=== PATIENT | female | born 1965 | race Caucasian/White ===

== ENCOUNTER 2018-12-16 06:59 | Day surgery (SDC) | payer OTHER, SELFPAY ==
--- NOTE | 2018-12-16 | PATH_ITS ---
[facility] Accession Number: [id number] . 01 Material submitted: . CECAL POLYP . 02 Diagnosis: Cecum, Polyp, Biopsy: Tubular adenoma. MRV/12/17/2018 . 02 Electronically signed: . Ирина Weiner MD, Pathologist NPI- [id number] . 01 Gross description: . Received one formalin-filled container labeled with the patient's name and labeled cecal polyp are four 0.2 to 0.5 cm portions of tissue. Entirely submitted in one cassette. ([facility]:[id number]) /[facility] . 02 Pathologist provided ICD-10: D12.0 . 02 CPT . 781879 Performed at: 01 [facility] [place] [address] [id number] MD Gulshan Gross MD Phone: [phone] Performed at: 02 [facility] [place] [address] [place], [place] [id number] MD Ирина Weiner MD Phone: [phone]
[2018-12-16] MEDS: SODIUM CHLORIDE 0.9% 1,000 ML 100 ML IV (07:11)
[2018-12-16 07:24] VITALS: BP 124/85; PULSE 80; RESP 15; TEMP 36.8; O2SAT 100; BMI 27.6
[2018-12-16] MEDS: MIDAZOLAM 5 MG/5 ML VIAL IV (08:43)
[2018-12-16] MEDS: fentaNYL 250 MCG/5 ML INJ IV (08:44)
--- NOTE | 2018-12-16 08:54 | PM.HP.1 ---
History of Present Illness Date Patient Seen: 12/16/18 Time Patient Seen: 08:55 Chief complaint: 36840 Colonoscopy Narrative: Gloria is a very pleasant 53-year-old lady who is here today for her 1st screening colonoscopy. She reports that she has an occasional pain on her left side but she thinks that her ovary. She denies any problems or symptoms related to the function of her GI tract. She denies any diarrhea or constipation. She denies any blood in her stool. She reports she needs a colonoscopy as part health maintenance program. Patient History Social History household members: none Family & Social History Social History: household members none Meds Home Medications Medication Instructions Recorded Confirmed Type spironolactone 25 mg PO BID 12/16/18 12/16/18 History Allergies Allergy/AdvReac Type Severity Reaction Status Date / Time No Known Drug Allergies Allergy Verified 12/16/18 07:12 Review of Systems Review of Systems All systems reviewed & are unremarkable except as noted in HPI and below Exam Vital Signs (past 8 hours): - 12/16/18 07:24 Temperature 98.3 F Pulse Rate 80 Respiratory Rate 15 Blood Pressure 124/85 Pulse Oximetry 100 Oxygen Delivery Method Room Air Narrative Exam Narrative: Very pleasant and well appearing 53-year-old lady in no distress HEENT: Normocephalic and atraumatic, pupils equal round reactive to light accommodation with anicteric sclera Lungs: Clear bilaterally Heart: Regular rate and rhythm Abdomen: Soft, nontender, active bowel sounds Extremities: Warm and well perfused Assessment & Plan Assessment & Plan narrative: 53-year-old lady here for her 1st screening colonoscopy. We discussed the risks and benefits of the procedure the patient expressed a desire to complete it today.
[2018-12-16 08:56] VITALS: BP 106/68; PULSE 78; RESP 12; TEMP 36.1; O2SAT 93
--- NOTE | 2018-12-16 08:56 | PM.OP.1 ---
Operative Date/Time/Diagnoses Date of procedure: 12/16/18 Time of procedure: 08:56 Pre-op diagnosis: Screening Post-op diagnosis: same Procedure & Clinicians Procedure: Colonoscopy to the cecum with polypectomy x1 Same procedure as scheduled: Yes Indications: No prior colonoscopy Surgeon: Beth Angeles Anesthesia Type: Sedation (Versed 6 mg; fentanyl 200 mcg) Operative Notes Findings: 1. Excellent prep 2. A 5 mm sessile polyp in the floor of the cecum removed with cold forceps and retained for pathology 3. Very minimal diverticulosis in the sigmoid region 4. Grade 2 internal hemorrhoids with 1 enlarged external hemorrhoid without prolapse. 5. Otherwise normal mucosa Closure Type: not applicable Specimen(s): other (Polyp from the floor of the cecum) Procedure in detail: After obtaining informed consent, the patient was brought to the GI suite and placed in the left lateral decubitus position on the examination table. After placement of appropriate monitors, the patient was given incremental doses of Versed and Fentanyl until an appropriate level of sedation was achieved. A time out was held per SCOAP protocol. A digital rectal examination was performed and did not reveal any masses or obstructing lesions. The colonoscope was gently passed into the patient's anus and the entire colon navigated to the level of the cecum with minimal difficulty. Once in the cecum, the scope was withdrawn being sure to go before and beyond all mucosal folds and prominences and get an excellent examination. The findings are noted above. At the level of the rectal vault, the scope was retroflexed and the internal anal canal was examined. The scope was straightened and air aspirated from the colon. The instrument was removed from the patient's body and the procedure was concluded. The patient was allowed to awaken from sedation without difficulty and taken to the post-anesthesia care unit in good condition. Complications: none Condition: stable Disposition: PACU Plan for aftercare: 1. Discharge to home 2. Plan for colonoscopy in 3 years due to the size of the polyp removed from the cecum. 3. We will contact you with pathology results and any additional recommendations.
[2018-12-16 09:01] VITALS: BP 114/69; PULSE 89; RESP 14; O2SAT 98
[2018-12-16 09:05] VITALS: BP 102/64; PULSE 77; RESP 11; TEMP 36.7; O2SAT 99
[2018-12-16 09:21] VITALS: BP 103/68; PULSE 66; RESP 16; TEMP 36.6; O2SAT 100
== END 2018-12-16 09:32 | disposition home or self-care (01) ==
LOC: ENDO 07:02
PROVIDERS: Visit Provider Surgery
PROC: 0DJD8ZZ Inspection of Lower Intestinal Tract, Via Natural or Artificial Opening Endoscopic (ICD-10-PCS; CPT 45378; principal; 2018-12-16 07:45)
DX: Z12.11 Encounter for screening for malignant neoplasm of colon (principal); K57.30 Diverticulosis of large intestine without perforation or abscess without bleeding; K64.1 Second degree hemorrhoids; K64.4 Residual hemorrhoidal skin tags; D12.0 Benign neoplasm of cecum
CPT/HCPCS: 45380; J2250; J3010

== ENCOUNTER → 2019-01-11 14:45 | Outpatient (CLI) | payer OTHER, SELFPAY ==
--- NOTE | 2019-01-11 | DI.US.S_ITS ---
PROCEDURE: US PELVIC COMPLETE INDICATIONS: PELVIC PAIN TECHNIQUE: Real-time scanning was performed of the pelvic organs, with image documentation. Additional endovaginal scanning was necessary due to incomplete visualization of the adnexal and endometrial structures by transabdominal scanning. COMPARISON: None. FINDINGS: Transabdominal scanning: Limited scanning through the kidneys shows no hydronephrosis. No pathologic free abdominal or pelvic fluid. Endovaginal scanning: Uterus: Uterus is normal in size at 7.2 x 4.6 x 2.9 cm. The endometrium measures 5-6 mm in combined thickness. Posterior uterine fibroid measuring 1.5 x 1.2 x 1.4 cm Ovaries: Right ovary measures 2.5 x 1.2 x 2.1 cm. The left ovary measures 3.0 x 1.3 x 1.7 cm. There are scattered nonspecific bilateral ovarian calcifications however no discrete cystic or solid mass lesion identified. Expected Doppler waveforms within the ovaries bilaterally IMPRESSION: Uterine fibroid. Dictated by: Almas Brown M.D. on 01/11/2019 at 16:45 Approved by: Almas Brown M.D. on 01/11/2019 at 16:48
== END ==
PROVIDERS: PCP Family Medicine; Visit Provider Family Medicine
DX: R10.2 Pelvic and perineal pain (principal); D25.9 Leiomyoma of uterus, unspecified
CPT/HCPCS: 76830; 76856

== ENCOUNTER 2022-02-21 07:00 | Emergency (ER) | payer OTHER, SELFPAY ==
--- NOTE | 2022-02-21 07:51 | ED.ABDPAIN ---
HPI - Abdominal Pain General Chief Complaint: Abdominal Pain Stated Complaint: Abd Pain left side Time Seen by Provider: 02/21/22 07:29 History of Present Illness HPI narrative: Patient here with sister. Patient here for left lower quadrant pelvic pain. Patient was seen at local hospital yesterday and had CT scan and ultrasound imaging. Reports brought with her today. CT scan and ultrasound concerning for left adnexal mass measuring essentially 7 x 7 x 7 cm. The emergency department yesterday did call local OBGYN dr maricarmen tucker, phone number [phone], to set up appointment. Patient states this discomfort has been going on for past 3 years. She did have ultrasound 3 years ago, please see report below. She did have follow-up colonoscopy that same year. Biopsy of a tumor was tubular adenoma. She is to have repeat colonoscopy this year. Patient states discomfort kept her up last night. She was placed on Augmentin for colitis. However she denies any diarrhea at this time. She was not prescribed pain medication. She states she is allergic to hydrocodone but is able to take Percocet. At this time, we will try to contact the surgeon office yesterday is referral. Hopefully to establish a follow-up office time. Labs were done yesterday as well. [place] [address] Ultrasound Report Signed Patient: Gloria Miller MR#: [id number] : 1965 Acct:[id number] Age/Sex: 53 / F Date of Service: 01/11/19 Loc: US Accession Number: [id number] ?? Procedure: US pelvic complete Ordering Provider: Ruben Merritt D.O. PROCEDURE:? US PELVIC COMPLETE ? INDICATIONS:? PELVIC PAIN ? TECHNIQUE:? Real-time scanning was performed of the pelvic organs, with image documentation.? Additional endovaginal scanning was necessary due to incomplete visualization of the adnexal and endometrial structures by transabdominal scanning.? ? COMPARISON:? None. ? FINDINGS:? Transabdominal scanning:? Limited scanning through the kidneys shows no hydronephrosis.? No pathologic free abdominal or pelvic fluid.? ? Endovaginal scanning:? Uterus:? Uterus is normal in size at 7.2 x 4.6 x 2.9 cm.? The endometrium measures 5-6 mm in combined thickness. Posterior uterine fibroid measuring 1.5 x 1.2 x 1.4 cm ? Ovaries: Right ovary measures 2.5 x 1.2 x 2.1 cm. The left ovary measures 3.0 x 1.3 x 1.7 cm. There are scattered nonspecific bilateral ovarian calcifications however no discrete cystic or solid mass lesion identified. ? Expected Doppler waveforms within the ovaries bilaterally IMPRESSION: ? Uterine fibroid. ? Dictated by: Almas Brown M.D. on 01/11/2019 at 16:45 ? ? Approved by: Almas Brown M.D. on 01/11/2019 at 16:48 ? [place] [address] Pathology Diagnostic Report Signed Ordering Physician:Beth Westbrook MD Patient name:Gloria Delgadillo Date of : 1965 Admit Date: 12/16/[address]: Ирина Weiner MD Collection Date: 12/16/18 [facility] Accession Number: [id number] .? 01 Material submitted:? . CECAL POLYP .? 02 Diagnosis: Cecum, Polyp, Biopsy: ?? ? Tubular adenoma. MRV/12/17/2018 .? 02 Electronically signed: ? . Ирина Weiner MD, Pathologist NPI- [id number] .? 01 Related Data Home Medications Medication Instructions Recorded Confirmed spironolactone 25 mg tablet 25 mg PO BID 12/16/18 12/16/18 Previous Rx's Medication Instructions Recorded ondansetron 4 mg disintegrating 4 mg PO Q8H PRN #10 tab 02/21/22 tablet oxycodone-acetaminophen 5 mg-325 1 tab PO Q4-6H PRN #14 tab 02/21/22 mg tablet (Percocet) Allergies Allergy/AdvReac Type Severity Reaction Status Date / Time No Known Drug Allergies Allergy Verified 12/16/18 07:12 Review of Systems Review of Systems Narrative: GENERAL: Denies chills, fatigue, malaise, fever, sweats. HEENT: Denies sinus pain, ear pain, sore throat RESPIRATORY: Denies dyspnea, cough CARDIOVASCULAR: Denies chest pain, palpitations GASTROINTESTINAL: Denies nausea, vomiting, positive for abdominal pain : Denies dysuria, frequency, hematuria MUSCULOSKELETAL: denies muscle or bony pain SKIN: Denies rash, skin lesions NEUROLOGIC: Denies weakness, numbness ROS Unobtainable: All systems reviewed & are unremarkable except as noted in HPI and below Patient History Social History household members: none Smoking Status: Never smoker Exam Narrative Exam Narrative: GENERAL: in no distress, not toxic not dyspneic HEAD: Normocephalic. EYES: Pupils equal round No scleral icterus. NECK: Trachea midline. CARDIOVASCULAR: Regular rate and rhythm without murmurs RESPIRATORY: Clear to auscultation. Breath sounds equal bilaterally. No wheezes, rales, or rhonchi. GASTROINTESTINAL: Abdomen soft, reproducible left lower quadrant tenderness. No peritoneal signs. Bowel sounds present. No CVA tenderness EXTREMITIES: No gross deformities. BACK: No flank tenderness. NEURO: AOx4. SKIN: Warm and dry PSYCH: Not anxious, is cooperative Initial Vital Signs Initial Vital Signs: Vital Signs Pulse Rate 74 02/21/22 07:52 Respiratory Rate 18 02/21/22 07:52 Blood Pressure 120/59 L 02/21/22 07:52 Pulse Oximetry 99 02/21/22 07:52 Course Course Course Narrative: No new issues during course of stay Orders Ordered: Discontinued Medications Ondansetron HCl (Ondansetron 4 Mg Odt) 4 mg SL NOW ONE Stop: 02/21/22 07:51 Last Admin: 02/21/22 08:19 Dose: 4 mg Documented by: ELENA Oxycodone/Acetaminophen (Oxycodone/Acetaminophen 5/325 Tablet) 1 tab PO NOW ONE Stop: 02/21/22 07:51 Last Admin: 02/21/22 08:19 Dose: 1 tab Documented by: ELENA Reevaluation(s) Reevaluation #1: Reviewed with patient and sister my conversation with the surgeon/OBGYN from yesterday's referral. She understands she will need to contact [facility]/On[facility] to make appointment for biopsy. Pain is much better after medications here. She was on Augmentin, urinalysis reviewed with her. Return precautions reviewed with her. She desires discharge home Time: 09:21 Consultations Consultation #1: I spoke with Dr. Tucker, on-call OBGYN from yesterday visit. She states her office has reviewed patient's [facility] insurance and she does not need referral to infection preventionist Oncology. She will be referred to [facility]. Her office will call patient this morning for further information. Time: 09:10 Vital Signs Vital signs: Vital Signs - 8 hr 02/21/22 07:52 Pulse Rate 74 Respiratory Rate 18 Blood Pressure 120/59 L Pulse Oximetry 99 MDM - Abdominal Pain Differential Diagnosis Differential diagnosis: Likely other (Ovarian mass/ovarian cancer/UTI/colitis) Lab Data Point of care testing: Urine Dip Bedside Urine Glucose Negative Bedside Urine Bilirubin - Negative Bedside Urine Ketone +/- 5 Urine Specific [place] 1.010 Bedside Urine Occult Blood +/- Bedside Urine pH 6.0 Bedside Urine Protein - Negative Bedside Urine Urobilinogen 0.2 Bedside Urine Nitrite - Negative Bedside Urine Leukocytes - Negative Esterase MDM Narrative Medical decision making narrative: Appropriate for discharge home. No laboratory studies or imaging indicated. Patient has had these done yesterday 24 hours ago. I did contact surgeon that was contacted yesterday. Plan in place for patient to be referred to [facility]. Their office will call patient this morning. Patient understands and agrees with treatment plan. Return precautions reviewed with her. Urinalysis noted here. Patient already on Augmentin from yesterday's visit for colitis. Discharge Plan Departure Patient Disposition: Home Clinical Impression: Mass of left ovary Instructions: DI for Pelvic Pain Activity Restrictions/Additional Instructions: Please call Dr. Tucker office this morning phone number is [phone] regarding referral to infection preventionist Oncology with [facility]. You will need further workup and possible biopsy for findings on yesterday's results. No driving or operating machinery while taking prescribed pain medication. Continue to finish the antibiotics as prescribed yesterday. Return if worse if any questions or concerns. Prescriptions: New ondansetron 4 mg tablet,disintegrating 4 mg PO Q8H PRN (Reason: nausea and vomiting) Qty: 10 0RF oxycodone-acetaminophen [Percocet] 5-325 mg tablet 1 tab PO Q4-6H PRN (Reason: pain) Qty: 14 0RF No Action spironolactone 25 mg Tablet 25 mg PO BID 0RF Referrals: Ruben Merritt DO [Primary Care Provider] -
[2022-02-21 07:52] VITALS: BP 120/59; PULSE 74; RESP 18; O2SAT 99; BMI 28.3
[2022-02-21] MEDS: ONDANSETRON 4 MG ODT SL (08:19)
[2022-02-21] MEDS: OXYCODONE/ACETAMINOPHEN 5/325 TABLET 1 TAB PO (08:19)
[2022-02-21 09:29] VITALS: BP 111/55; PULSE 74; RESP 20; TEMP 36.8; O2SAT 98
== END 2022-02-21 09:35 | disposition home or self-care (01) ==
PROVIDERS: Emergency Provider Emergency Medicine; PCP Family Medicine
DX: N83.8 Other noninflammatory disorders of ovary, fallopian tube and broad ligament (principal)
CPT/HCPCS: 81003; 99283

== ENCOUNTER 2023-03-05 08:05 | Day surgery (SDC) | payer OTHER, SELFPAY ==
[2023-03-05 08:23] VITALS: BP 124/84; PULSE 89; RESP 17; TEMP 35.5; O2SAT 100; BMI 27.6
--- NOTE | 2023-03-05 08:40 | PM.HP.1 ---
History of Present Illness History of Present Illness Date Patient Seen: 03/05/23 Time Patient Seen: 08:40 Chief complaint: Colonoscopy Narrative: Had a big polyp 4 years ago. Was asked to repeat scope in 3 years but was dealing with ovarian cancer and total hysterectomy last year. No blood in stool. Does had LLQ pain with defecation and hard to evacuate stool. PFSH Social History household members: significant other Smoking Status: Former smoker alcohol intake: current Meds Home Medications and Allergies Home Medications Medication Instructions Recorded Confirmed Type spironolactone 25 mg tablet 25 mg PO BID 12/16/18 03/05/23 History rizatriptan 10 mg tablet mg 03/05/23 History Allergies Allergy/AdvReac Type Severity Reaction Status Date / Time hydrocodone Allergy Verified 03/05/23 08:19 Review of Systems Review of Systems ROS: Yes All systems reviewed with the patient and are negative except as otherwise documented Exam Vital Signs (past 8 hours): - 03/05/23 08:23 Temperature 96 F L Pulse Rate 89 Respiratory Rate 17 Blood Pressure 124/84 Pulse Oximetry 100 Oxygen Delivery Method Room Air Oxygen Delivery Method Room Air Const General: cooperative, healthy appearing and comfortable Nutritional Appearance: average body habitus HENMT Head: normocephalic and atraumatic Ears: hearing grossly normal bilaterally Eyes Sclera: sclerae normal Neck Neck: trachea midline Resp Effort & Inspection: normal respiratory effort and able to speak in complete sentences Cardio Rate: regular rate Rhythm: regular rhythm GI Palpation: soft Skin General: turgor normal Neuro General: patient alert, patient awake and patient oriented x3 Cognition: normal cognition Psych Judgment: judgment good Assessment & Plan Assessment & Plan narrative: H/o colon polyp Plan: colonoscopy with general anesthetic. COVID-19 COVID-19 status: Negative Time Spent With Patient Time with patient: less than 30 minutes
[2023-03-05] MEDS: LACTATED RINGERS 1,000 ML 42 ML IV (08:42)
--- NOTE | 2023-03-05 08:51 | PM.OP.COLON ---
Operative Date/Time/Diagnoses Date of procedure: 03/05/23 Time of procedure: 08:51 Pre-op diagnosis: h/o colon polyp Post-op diagnosis: same Procedure & Clinicians Study performed: Colonoscopy with general anesthetic Same procedure as scheduled: Yes Indications: History of colon polyp Surgeon: Ivana Mars Procedure Notes Procedure in detail: Preop diagnosis: History of colon polyp Postop diagnosis: Same Operative procedure: Colonoscopy general anesthetic Surgeon: Xena Mars MD Findings: No polyps identified. No significant diverticulosis. Procedure: Patient placed in lateral position. Rectal exam performed showing normal tone no masses. Scope was inserted into the rectum and advanced to ileocecal valve with minimal difficulty. Insufflation extraction scope and the above findings. Retroflex was included in the rectum. Impression: No polyps identified. No significant diverticulosis. And no twisting or abnormalities of the descending colon where patient has intermittent pain. This is presumably from her recent total hysterectomy and should get better with time. Discussed with her the importance Kegel exercises. Plan: Repeat colonoscopy in 5 years unless otherwise indicated by change in clinical condition Specimen(s): none sent Complications: none Post-procedure Recommendations: Colonoscopy in 5 years Follow up: as needed Disposition: PACU
[2023-03-05 09:11] VITALS: BP 120/82; PULSE 79; RESP 12; TEMP 36.2; O2SAT 93
[2023-03-05 09:16] VITALS: BP 116/84; PULSE 85; RESP 16; O2SAT 95
[2023-03-05 09:22] VITALS: BP 130/70; PULSE 81; RESP 11; TEMP 36.3; O2SAT 99
== END 2023-03-05 09:40 | disposition home or self-care (01) ==
PROVIDERS: Surgery; PCP Family Medicine; Referring Provider Surgery; Visit Provider Surgery
PROC: 0DJD8ZZ Inspection of Lower Intestinal Tract, Via Natural or Artificial Opening Endoscopic (ICD-10-PCS; CPT 45378; principal; 2023-03-05 09:15)
DX: Z12.11 Encounter for screening for malignant neoplasm of colon (principal); Z86.010 Personal history of colon polyps
CPT/HCPCS: 45378; J2704; J3010